=== PATIENT | female | born 1945 | race Caucasian/White ===

== ENCOUNTER 2018-01-07 15:02 | Observation (INO) ==
[2018-01-07] MEDS ORDERED: *HR* FentaNYL (PF) 100 MCG/2 ML VIAL IVP ONE (15:57)
[2018-01-07] MEDS ORDERED: *HR* Propofol 500 MG/50 ML BOTTLE IVP ONE (16:42)
--- NOTE | 2018-01-07 17:01 | Emergency Department Note ---
Disposition Clinical Impression: Hip dislocation, right Qualifiers: Encounter type: initial encounter Qualified Code(s): S73.004A - Unspecified dislocation of right hip, initial encounter Disposition: Admitted As Inpatient Condition: Fair Instructions: Hip Dislocation (ED) Reasons to Return/Additional Instructions: . Referrals: Cornelius Ho DO [Primary Care Provider] - Kale Gutiérrez MD [Non-Partnered Physician] - Forms: ED Satisfaction Letter Time of Disposition: 18:27 General Adult HPI - General Chief complaint: ED Extremity Injury, Lower Stated complaint: Right Hip Pain Time Seen by Provider: 01/07/18 15:07 Source: patient, EMS Mode of arrival: EMS Limitations: no limitations Nursing Notes Reviewed: Yes Vital Signs Reviewed: Yes - History of Present Illness HPI Narrative: 72-year-old female percent for evaluation of right hip pain. Patient is status post right hip arthroplasty. Patient states that she was leaning over and felt a pop. Patient then noted that she had sudden onset of right hip pain. Denies any other injuries. Patient notes pain primarily in the right hip. Denies any knee or foot pain. Patient was not ambulatory following the injury. States she is postop approximately 6 weeks ago from her surgery at [place]. Pain Scale: 3 - Related Data Allergies Allergy/AdvReac Type Severity Reaction Status Date / Time [place] Allergy Difficulty Verified 01/07/18 15:15 Breathing egg Allergy Difficulty Verified 01/07/18 15:15 Breathing milk Allergy Difficulty Verified 01/07/18 15:15 Breathing peanut Allergy Difficulty Verified 01/07/18 15:15 Breathing shrimp Allergy Rash Verified 01/07/18 15:15 wheat Allergy Difficulty Verified 01/07/18 15:15 Breathing All systems ED: reviewed and negative except as stated. Constitutional: Denies: fever Cardiovascular: Denies: chest pain Respiratory: Denies: cough, dyspnea Gastrointestinal: Denies: abdominal pain, nausea, vomiting Past Medical History - Past Medical History Source: patient Medical history: Reports: arthritis, diabetes, GERD, hypertension Psychiatric history: Reports: no psych history - Social History Smoking Status: Never smoker Smokeless Tobacco Status: No Alcohol use: Reports: none Drug use: Reports: none Physical Exam - General Limitations: no limitations General appearance: alert, in no apparent distress - Head Head exam: atraumatic, normocephalic, normal inspection - Eye Eye exam: Present: normal appearance, PERRL, EOMI - ENT ENT exam: normal exam, normal oropharynx, mucous membranes moist - Neck Neck exam: Present: normal inspection, full ROM, trachea midline - Chest Chest inspection: Present: normal inspection, symmetric chest wall rise - Respiratory Respiratory exam: Present: normal lung sounds bilaterally. Absent: respiratory distress - Cardiovascular Cardiovascular exam: Present: regular rate, normal rhythm - Abdominal Exam Abdominal exam: Present: soft, Non-Tender - Expanded Lower Extremity Exam Hip/Pelvis exam: Present: normal inspection, tenderness, internal rotation. Absent: swelling (Right hip), abrasion Upper leg exam: Present: normal inspection. Absent: tenderness Knee exam: Present: normal inspection, full ROM. Absent: tenderness Lower leg exam: Present: normal inspection, full ROM. Absent: tenderness Ankle exam: Present: normal inspection Neurovascular/Tendon exam: Present: normal capillary refill, other (Patient's right hip was shortened and internally rotated. Clinically the patient does have a dislocation.). Absent: pulse deficit, motor deficit, sensory deficit - Neurological Exam Neurological exam: Present: alert - Skin Skin exam: Present: warm, dry, intact, normal color Course Course Narrative: Patient presents for concerns of hip pain. Concerns of right hip dislocation. Patient will get imaging and appropriate pain control. - Reevaluation(s) Reevaluation #1: Patient updated on plan of care. Patient's hip is reduced. Patient states that she will attempt to find assistance at home tonight. Time: 19:03 Reevaluation #2: Patient seen and examined. Did discuss the patient's case with the patient's brother who states that he can be intermittently available. However there is concerns the patient will not have the appropriate resources at home. Been unsafe discharge the patient is going to be nonweightbearing with a right knee immobilizer. Patient will be admitted to the hospital service for further e valuation and discharge planning. Time: 19:31 - Consultations Consultation #1: Spoke with Dr. Coronel who states that the patient can be weight bearing as tolerated. Knee embolizer and abduction pillow and can follow up with Dr. Gutiérrez tomorrow or the next day. Given the patient's poor support at home the patient will be admitted tonight for pain control and monitoring. Time: 20:11 Vital Signs Temperature 99.1 F 01/07/18 15:07 Pulse Rate 92 01/07/18 15:07 Respiratory Rate 14 01/07/18 15:07 Blood Pressure 146/79 01/07/18 15:07 O2 Sat by Pulse Oximetry 100 01/07/18 15:07 Temperature 99.1 F 01/07/18 15:07 Pulse Rate 15 01/07/18 18:48 Respiratory Rate 16 01/07/18 18:48 Blood Pressure 149/81 01/07/18 18:48 O2 Sat by Pulse Oximetry 100 01/07/18 18:48 Oxygen Delivery Oxygen Delivery [] Room Air Oxygen Delivery [] Nasal Cannula Oxygen Delivery [] Nasal Cannula Oxygen Delivery [] Nasal Cannula Oxygen Delivery [] Nasal Cannula Oxygen Delivery Room Air Procedures - Orthopedic Joint Reduction Joint #1 Consent Obtained: verbal consent, written consent Time Out Performed: Yes Side: right Joint Reduction Location: hip ASA Classification: CLASS III-Severe systemic disease Analgesia: procedural sedation Technique used: traction/counter-traction, direct manipulation Post-reduction neuro exam: intact Post-reduction vascular: intact Post Reduction X-Ray Obtained: Yes Post Reduction X-Ray Results: reduced Splint Applied: Yes Patient Tolerated Procedure: well, no complications - Procedural Sedation Indication: fracture/dislocation reduction Dietary Status: NPO 6 hours prior to procedure H&P (including ROS) documented in medical record: Yes Previous reaction to sedatives/anesthetics: No Dentition: No loose teeth or bridges Airway Assessment: Patient can open mouth completely, TMJ function normal ASA Classification: CLASS III-Severe systemic disease Plan of Care: Pt appropriate candidate for procedure/moderate/conscious sedation Preparation: bus monitor applied, pulse oximeter, capnometry used, supplemental O2 applied, suction/airway equipment at bedside, IV secured Fentanyl: IV Fentanyl Dose: 50 IV Propofol Dose (mgs): 300 Patient Tolerated Procedure: well, no complications Complications: none Medical Decision Making - MDM Narrative Medical decision making narrative: Patient presented for concerns of right hip pain. Concerns initially for hip dislocation. X-ray confirmed hip dislocation. Patient was neurovascular intact pre-and post reduction. Patient tolerated the procedure well with procedural sedation at bedside with respiratory at bedside. Patient received appropriate pain control. Postreduction the patient was neurovascular intact. Patient had knee immobilizer and abduction pillow placed. Patient does not have appropriate resources at home and support. Patient will be admitted to the hospital service for further evaluation with social work and discharge planning. Patient is agreeable with this plan of care. Patient did get basic labs as the patient will be admitted to the hospital service. - Radiology Data Radiology results reviewed: Yes I reviewed the patient's radiology results. Hip X-Ray 01/07/18 17:49 IMPRESSION: Right hip reduction. D/ / Allan Harper MD / Allan Harper MD Interpreting Provider: Allan Harper MD - EKG Data EKG #1 EKG attestation: Yes I reviewed and interpreted this EKG. EKG shows normal: sinus rhythm Rate: normal Rhythm: NSR [place]/QRS: normal Interpretation: no acute changes S.B.A.RStacia - S.B.AReza Situation: Demographics Background: Presenting Complaint Assessment: Vital Signs, Course and respsone to treatment, Patient/Family Expectation Recommendation: Barrier(s) to disposition, Recommendation based on pending studies, treatments, or consults S.B.A.RStacia Report Given to: Dr. Mary Saravia Repor Time: 20:04 Attestation Statement - Attestation Attestation: I, Syed Dominguez, examined this patient and my medical decision-making was reviewed with the DISCHARGE PLANNER/PA/Advanced Practice Nurse/Resident Physician. I agree with the documented findings, disposition and treatment plan as described except to the extent set forth below. 72-year-old female presents emergency Department with concerns of right hip pain. Patient states she was leaning forward to clean her shoe when she felt a pop in the right head. She was unable to ambulate after that time. Patient felt a pop in the right hip. She is 8 weeks status post right hip surgery by Dr. Gutiérrez. Denies fever, chills, nausea, vomiting. Was in her usual state of health prior to the incident. Denies other head or have loss consciousness. X-ray shows superior posterior is placement of the femoral head. Conscious sedation with right hip reduction was performed after discussion of risks and benefits and written consent obtained. I supervised the conscious sedation and participated in the reduction.
[2018-01-07] MEDS ORDERED: 0.9 % Sodium Chloride 1,000 ML ONE (17:29)
[2018-01-07 20:14] LABS: Basophils % 0.5 %; Eosinophils % 0.2 %; Hematocrit 33.4 % (35.3-44.9); Hemoglobin 11.2 g/dL (11.5-15.4); Immature Granulocytes % 0.2 % (0-4); Lymphocytes # 1.5 K/mcL (0.6-4.6); Lymphocytes % 17.7 %; Mean Corpuscular HGB Conc 33.5 g/dL (31.6-35.5); Mean Corpuscular Hemoglobin 31.8 pg (28.0-33.3); Mean Corpuscular Volume 94.9 fL (83.0-100.0); Mean Platelet Volume 9.9 fL (9.4-12.4); Monocytes # 0.7 K/mcL (0.0-1.3); Monocytes % 7.8 %; Neutrophils # 6.1 K/mcL (1.6-8.9); Platelet Count 262 K/mcL (140-400); Red Blood Count 3.52 M/mcL (3.82-4.97); Red Cell Distribution Width 12.8 % (11.5-14.5); Segmented Neutrophils % 73.6 %
[2018-01-07 20:31] LABS: Calcium 9.3 mg/dL (8.6-10.3); Potassium 4.2 mEq/L (3.5-5.1)
[2018-01-08] MEDS ORDERED: Naloxone 0.4 MG/ML INJ IVP PRN (03:39)
[2018-01-08] MEDS ORDERED: 0.9 % Sodium Chloride 1,000 ML IVC ONE (03:41)
[2018-01-08] MEDS ORDERED: Acetaminophen 325 MG TABLET PO PRN (03:44)
[2018-01-08] MEDS ORDERED: *HR* HYDROcodone/Acet 5/325 mg TABLET PO PRN (03:44)
[2018-01-08] MEDS ORDERED: Dextrose Gel 15 GM/37.5 ML TUBE PO PRN ×2 (03:44)
[2018-01-08] MEDS ORDERED: *HR* Dextrose 50 % in Water (Syg) 50 ML SYRINGE IVP PRN (03:44)
[2018-01-08] MEDS ORDERED: D5% in Water 1,000 ML IVC PRN (03:44)
--- NOTE | 2018-01-08 03:48 | Internal Med History&Physical ---
Date of Encounter: 01/08/18 Time of Encounter: 03:00 Internal Medicine - H&P: HPI Chief complaint: Right hip dislocation Admitted From: Emergency Dept Plans for Post Hospital Care: Home History of present illness: Ms. Russo is a 72 year old female Patient dislocated her right hip while she was standing in her bathroom and noticed some dirt on her shoe. She propped her right foot up on the bathtub and bent over when she heard a pop. She felt pain immediately, shimmied over to the toilet where she sat down for approximately 3 hours as there is no phone nearby to call for help. She then lowered herself to the floor gently, and crawled on her left side to her living room where a phone was. She called her brother initially but there was no answer. A few hours later she decided to call the ambulance. Her front door was locked, but fortunately the bathroom window was open. EMS climbed through the window, open the door and she was then retrieved and transported to the emergency room. In the emergency room CBC was within normal limits BMP also within normal as. GFR slightly low at 47, no past records available for comparison. Hip x-ray showed a superior dislocation of the right hip. The emergency room was able to successfully reduce the hip. In follow-up hip x-ray confirmed this. She was still unable to bear weight on her leg, therefore recommended by the ER for admission for observation. I asked the ER to call orthopedic surgery, Dr. Coronel regarding his recommendations, which included putting the patient in a knee immobilizer, use an abduction pillow, control pain and patient can weight-bear as tolerated. Upon my evaluation patient states that she has no complaints. She denies nausea, vomiting, diarrhea, constipation, chest pain and abdominal pain. She denies hip pain. She states that she is 6 weeks status post right hip replacement which was performed at [place]. She follows up with orthopedic surgery there. Past Med Surg Social Fam HX - Past Medical History Medical history: arthritis, diabetes, GERD, hypertension Psychiatric history: no psych history - Past Surgical History Surgical History: cholecystectomy Additional surgical history: cataracts, right hip surgery - Social History Smoking Status: Never smoker Smokeless Tobacco Status: No Alcohol use: none Drug use: none - Family History Mother Living Status: Age at : 93 Cause of : alzheimers Hx Family Cardiac Disorders: Yes (htn, hld) Father Living Status: Age at : 78 Cause of : cva, pneumonia Hx Family Cardiac Disorders: Yes (cva, htn) Hx Family Cancer: Yes (prostate cancer) Hx Family Musculoskeletal Disorders: Yes (3 failed knee implants) Internal Medicine - H&P: Meds Calcium Citrate/Vitamin D3 [Calcium Citrate with D Tablet] 1 each PO BID 01/07/18 [History] Ibuprofen [Motrin] 400 mg PO PRN PRN 01/07/18 [History] Losartan/Hydrochlorothiazide [Losartan-Hctz 100-12.5 mg Tab] 1 each PO DAILY 01/07/18 [History] Magnesium Oxide [Magnesium] 500 mg PO DAILY 01/07/18 [History] Naproxen Sodium [Aleve] 220 mg PO DAILY PRN 01/07/18 [History] Omeprazole [PriLOSEC] 20 mg PO DAILY 01/07/18 [History] Vitamin A 10,000 unit PO DAILY 01/07/18 [History] Vitamin E (Dl,Tocopheryl Acet) [Vitamin E] 400 unit PO DAILY 01/07/18 [History] metFORMIN [Glucophage] 1,000 mg PO BID 01/07/18 [History] Allergy/AdvReac Type Severity Reaction Status Date / Time cephalexin [From Keflex] Allergy Rash Verified 01/07/18 20:40 [place] Allergy Difficulty Verified 01/07/18 15:15 Breathing egg Allergy Difficulty Verified 01/07/18 15:15 Breathing milk Allergy Difficulty Verified 01/07/18 15:15 Breathing peanut Allergy Difficulty Verified 01/07/18 15:15 Breathing shrimp Allergy Rash Verified 01/07/18 15:15 wheat Allergy Difficulty Verified 01/07/18 15:15 Breathing All Systems PM: A 10-system review of systems was performed and is negative for pertinent findings except as documented above in the HPI. - Constitutional Vitals: Temp Pulse Resp BP Pulse Ox 98.9 F 81 16 134/68 97 01/08/18 02:28 01/08/18 02:28 01/08/18 02:28 01/08/18 02:28 01/08/18 02:28 General appearance: Present: cooperative, A&O X 3, pleasant, no acute distress, answers questions appropriately Exam: As above - Head Head exam: Present: normal inspection - Eye Eye exam: Present: EOMI, normal appearance - Respiratory Respiratory exam: Present: CTAB. Absent: chest wall tenderness, rales, wheezes - Cardiovascular Cardiovascular exam: Present: RRR. Absent: diastolic murmur, systolic murmur - GI/Abdominal GI/Abdominal exam: Present: normal bowel sounds, soft. Absent: tenderness - Extremities Exam Extremities exam: Present: warm, radial pulses palpable and symmetrical. Absent: calf tenderness, pedal edema, tenderness Additional comments: No tenderness over right or left hip. - Neurological Exam Neurological exam: Present: no focal deficits, strengths equal and symetr throughout. Absent: motor sensory deficit, facial droop, speech deficit - Skin Skin exam: Present: dry, normal color, warm Internal Med - H&P Results - Labs CBC & Chem 7: 01/07/18 20:02 01/07/18 20:02 Labs: Short CBC 01/07/18 Range/Units 20:02 WBC 8.3 (4.3-11.1) K/mcL Hgb 11.2 L (11.5-15.4) g/dL Hct 33.4 L (35.3-44.9) % Plt Count 262 (140-400) K/mcL Neutrophils # 6.1 (1.6-8.9) K/mcL BMP 01/07/18 20:02 Sodium 141 Potassium 4.2 Chloride 106 Carbon Dioxide 26 BUN 20 Creatinine 1.13 Glucose 152 H Calcium 9.3 - Impressions ITS Impressions Hip X-Ray 01/07/18 15:56 IMPRESSION: Superior dislocation right total hip arthroplasty. No fracture evident D/ / Fernando Buchanan / Fernando Buchanan Interpreting Provider: Fernando Buchanan Hip X-Ray 01/07/18 17:49 IMPRESSION: Right hip reduction. D/ / Allan Harper MD / Allan Harper MD Interpreting Provider: Allan Harper MD - Assessment and plan (1) Hip dislocation, right Current Visit: Yes Status: Acute Assessment and plan: Status post reduction, confirmed by repeat hip image. Weight-bear as tolerated Physical therapy and occupational therapy consult in the morning Pain control as needed Knee immobilizer Abduction pillow Qualifiers: Encounter type: initial encounter Qualified Code(s): S73.004A - Unspecified dislocation of right hip, initial encounter (2) Hip pain Current Visit: Yes Status: Acute Assessment and plan: Secondary to hip dislocation, now resolved Qualifiers: Laterality: right Qualified Code(s): M25.551 - Pain in right hip (3) Diabetes Current Visit: Yes Status: Acute Assessment and plan: Takes metformin at home. We will hold home meds Low-dose sliding scale insulin as needed Monitor sugars with meals and at night. Diabetic diet Qualifiers: Diabetes mellitus type: type 2 Diabetes mellitus programs director insulin use: without programs director use Diabetes mellitus complication status: without complication Qualified Code(s): E11.9 - Type 2 diabetes mellitus without complications (4) Acute kidney injury Current Visit: Yes Status: Acute Assessment and plan: Patient's GFR was 47, we do not have any previous lab work. BUN/creatinine within normal limits. We will give 1 L normal saline IV (5) DVT prophylaxis Current Visit: Yes Status: Acute Assessment and plan: Ambulation as tolerated - Time Spent With Patient Total time spent is greater than 50% in coordination of care (as documented) at patient's floor/unit and/or counseling patient: 25 - 35 minutes
[2018-01-08] MEDS ORDERED: Insulin LISPRO 300 UNITS/3 ML VIAL SQ SCH ×2 (07:30→21:00)
[2018-01-08 07:53] VITALS: BP 149/77
--- NOTE | 2018-01-08 08:05 | Event Note ---
Date of Encounter: 01/08/18 Time of Encounter: 08:04 Patient was seen and evaluated by Dr. Coronel this AM - Continue recommendations: knee immobilizer, use an abduction pillow, control pain and patient can weight- bear as tolerated. Needs follow up with outpatient surgeon - .
--- NOTE | 2018-01-08 09:54 | Discharge Summary ---
Date of Encounter: 01/08/18 Time of Encounter: 09:51 - Discharge Diagnosis (1) Hip dislocation, right Priority: Primary Status: Acute Assessment and Plan: Reduced in the ER follow evaluation by orthopedic compound hip dislocation recommended to successfully reduce the patient is stable to be discharged on knee immobilizer and pain control Qualifiers: Encounter type: initial encounter Qualified Code(s): S73.004A - Unspecified dislocation of right hip, initial encounter (2) Diabetes Priority: Secondary Status: Acute Assessment and Plan: chronic continue home medication Qualifiers: Diabetes mellitus type: type 2 Diabetes mellitus parts counterman insulin use: without group home use Diabetes mellitus complication status: without complication Qualified Code(s): E11.9 - Type 2 diabetes mellitus without complications (3) Hip pain Priority: Secondary Status: Acute Comments: Continue home pain control Qualifiers: Laterality: right Qualified Code(s): M25.551 - Pain in right hip Hospital course: Ms. Russo is a 72 year old female Patient with history of diabetes, obesity, GERD, hypertension patient was admitted with right hip dislocation and came into the emergency room with hip pain which was successfully reduced in the emergency room because of not able to ambulate patient was admitted for observation patient was seen this morning by orthopedic and recommend knee immobilizer and patient stable to be discharged no for no surgical intervention needed Discharge discussed with: patient - Time Spent with Patient Total time spent providing and/or coordinating discharge services: Less than 30 minutes - Discharge Medications Home Medications: Calcium Citrate/Vitamin D3 [Calcium Citrate with D Tablet] 1 each PO BID 01/07/18 [History] Ibuprofen [Motrin] 400 mg PO PRN PRN 01/07/18 [History] Losartan/Hydrochlorothiazide [Losartan-Hctz 100-12.5 mg Tab] 1 each PO DAILY 01/07/18 [History] Magnesium Oxide [Magnesium] 500 mg PO DAILY PRN 01/07/18 [History] Naproxen Sodium [Aleve] 220 mg PO DAILY PRN 01/07/18 [History] Omeprazole [PriLOSEC] 20 mg PO DAILY 01/07/18 [History] Vitamin A 10,000 unit PO DAILY 01/07/18 [History] Vitamin E (Dl,Tocopheryl Acet) [Vitamin E] 400 unit PO DAILY 01/07/18 [History] metFORMIN [Glucophage] 1,000 mg PO BID 01/07/18 [History] Allergies/Adverse Reactions: Allergy/AdvReac Type Severity Reaction Status Date / Time cephalexin [From Keflex] Allergy Rash Verified 01/07/18 20:40 [place] Allergy Difficulty Verified 01/07/18 15:15 Breathing peanut Allergy Difficulty Verified 01/07/18 15:15 Breathing [place] Allergy Rash Verified 01/07/18 15:15 [place] Allergy Difficulty Verified 01/07/18 15:15 Breathing Date of admission: 01/07/18 20:18 Primary care physician: Cornelius Ho Consults: 01/08/18 03:42 Consult to Physical Therapy [CONS] Routine Comment: Evaluate, develop and implement POC Reason for Consult: Patient dislocated right hip, has been reduced. Patient cleared for weightbearing, as tolerated Does patient have active BEDREST order?: No Is patient medically & hemodynamically stable?: Yes 01/08/18 03:46 Consult to Occupational Therapy [CONS] Routine Comment: Evaluate, develop and implement POC Reason for Consult: Patient dislocated her right hip status post reduction. She had hip replacement surgery 6 weeks ago. Does patient have active BEDREST order?: No Is patient medically & hemodynamically stable?: Yes Discharging clinician: Birdie Donovan Anticipated date of discharge: 01/08/18 - Constitutional Vitals: Temp Pulse Resp BP Pulse Ox 99.4 F 75 15 149/77 99 01/08/18 07:51 01/08/18 07:51 01/08/18 07:51 01/08/18 07:51 01/08/18 07:51 General appearance: Present: cooperative, A&O X 3, pleasant, no acute distress, answers questions appropriately Exam: As above - Patient Status Disposition: Home, Self-Care Overall status at discharge: patient is progressing back to baseline - Discharge Instructions Follow Up With: Cornelius Ho DO [Primary Care Provider] - - Diet and Activity Activity: other Diet: advance to your usual diet
--- NOTE | 2018-01-12 15:38 | Electrocardiograph Report ---
[place] [id number] Test Date: 2018-01-07 Pat Name: Luisa Russo Department: EXAM8 Room: [facility] Gender: F Traffic Recorder: : [id number] Requested By: Syed Dominguez Order Number: [id number] Reading MD: Forrest Doyle Measurements Intervals [place] Rate: 89 P: 74 MS: 152 QRS: 11 QRSD: 77 T: 55 QT: 382 QTc: 465 Interpretive Statements Sinus rhythm Borderline low voltage, extremity leads Electronically Signed On 01-12-2018 15:36:26 EDT by Forrest Doyle
== END 2018-01-08 11:17 | disposition home or self-care (01) ==
LOC: EMEROOARM 15:02 → 3NENU 15:02
PROVIDERS: ADMIT Family Medicine; ATTEND Family Medicine